=== PATIENT | female | born 1960 | race Caucasian/White ===

== ENCOUNTER 2023-08-26 01:24 | Emergency (ER) | payer BC, SELFPAY ==
[2023-08-26 01:24] VITALS: BMI 31.5
[2023-08-26 01:29] VITALS: BP 156/78
--- NOTE | 2023-08-26 01:52 | ED.MUSCINJ ---
HPI-Injury
<SURYA Wang - Last Filed: 08/26/23 03:27>
General
Chief Complaint: Musculo-Skeletal Complaint
Source: patient and significant other
Exam Limitations: none
Time Seen by Provider: 08/26/23 01:39
Nursing documentation reviewed up to this point in time: agreed with
Travel History
Have you had any contact with someone who has COVID-19?: No
Do you have any symptoms of coronavirus? Fever > 100 degrees, chills, cough, shortness of breath, sore throat, loss of taste or smell, muscle aches, or headache?: No
History of Present Illness-Injury
Is this injury a work related problem?: No
Is pt an associate of [facility]?: No
Initial Injury comments:
This is a 63 year old female with history of knee OA who presents to the ED w/ R posterior knee pain x4 hours. Patient was sitting for a long period of time at a concert [facility] and felt moderate pain after she got up. She was able to walk
to her car, but after an hour long car ride, she was unable to bear weight on the R leg. She used a cane to help ambulate. Her pain has improved. She reports having L knee stiffness and has pain with knee flexion. She had a L TKA 2021 without any
complications. She denies knee swelling, calf pain or redness, SOB, CP, or headache. She denies any known trauma or injury. She denies smoking tobacco. She is not on hormonal replacement therapy. She has no known family history of blood clots.
Past History
<SURYA Wang - Last Filed: 08/26/23 03:27>
Past History
ED Past Medical History: Hypothyroidism
ED Past Surgical History: , Gynecological (hyster) and Other (incisional hernia repair)
Social History
Tobacco: Non-smoker
Personal:
Living: with family
Employment: Employed
Family History
Family History: Other (Noncontributory)
Review of Systems
<SURYA Wang - Last Filed: 08/26/23 03:27>
Review of Systems
Allergies reviewed?: Yes
All Other Systems: Not applicable
Constitutional: Reports no symptoms
EENT: Reports no symptoms
Respiratory: Reports no symptoms
Cardiac: Reports no symptoms
ABD/GI: Reports no symptoms
: Reports no symptoms
Musculoskeletal: Reports muscle stiffness (L posterior knee pain) and other (Difficulty ambulating)
Skin: Reports no symptoms
Neurological: Reports no symptoms
Endocrine: Reports no symptoms
Hematologic/Lymphatic: Reports no symptoms
Psychiatric: Reports no symptoms
Phy Exam
<SURYA Wang - Last Filed: 08/26/23 03:27>
General Physical Exam
General Presentation: well appearing and no apparent distress
General Skin: warm and dry
General Habitus: normal
General Mental: alert
General Hydration: appears well hydrated
ENT Exam
ENT Exam: EOMI, pharynx normal, neck supple and normocephalic
Eye Exam
Eye Exam: PERRL, cornea clear and conjunctiva normal
Cardiovascular Exam
Cardiovascular Exam: regular rate/rhythm, no edema, no murmur and normal peripheral pulses
Pulmonary Exam
Pulmonary Exam: lungs clear, no respiratory distress, no rales, no crackles, no rhonchi, no stridor, no wheezing and no cough
Gastrointestinal Exam
Gastrointestinal Exam: normal bowel sounds, non tender, soft, no organomegaly, no pulsatile mass and non distended
Neurological Exam
Neurological Exam: alert, oriented x3, no motor deficits and speech normal
Musculoskeletal Exam
Musculoskeletal Exam: full ROM, no edema and other (R knee stiffness )
Skin Exam
Skin Exam: normal color, warm/dry, no rash and no petechia
Psychiatric Exam
Psychiatric Exam: normal mood/affect
Injury Course
<SURYA Wang - Last Filed: 08/26/23 03:27>
Orders/Labs/Results
Orders:
Orders
08/26/23 02:08
CR Knee- Right 4 Or More View* Urgent
Comment:
Reason For Exam: posterior knee pain
US Periph Venous LOWER Ext RT Urgent
Comment:
Reason For Exam: Right calf pain
<Jamar Paulino DO - Last Filed: 08/26/23 03:29>
Orders/Labs/Results
Orders:
Orders
08/26/23 02:08
CR Knee- Right 4 Or More View* Urgent
Comment:
Reason For Exam: posterior knee pain
US Periph Venous LOWER Ext RT Urgent
Comment:
Reason For Exam: Right calf pain
<SURYA Wang - Last Filed: 08/26/23 03:27>
MDM/Problems Addressed
Differential Diagnosis Includes:
Knee OA, knee stiffness, DVT, Freeman's cyst
DVT concerned due to RLE pain. However less likely due to negative family history, no risk factors (smoking/HRT). RLE not inflamed or swollen. Will order lower extremity ultrasound to rule out DVT. Freeman's cyst considered due to pain with posterior
knee and stiffness, however normal physical exam. Knee stiffness considered. I suspect this episode of difficulty bearing weight on R leg is due to knee stiffness secondary to knee OA. Her symptoms have improved. She has a history of L TKA in 2021.
Will order knee xray for further evaluation.
<SURYA Wang - Last Filed: 08/26/23 03:27>
*Critical Care Note
Total Time (30-74mins, 75-104mins- exclusive of procedures): Not Applicable
<Jamar Paulino DO - Last Filed: 08/26/23 03:29>
Update Note
Update Note:
Ultrasound negative for DVT. X-ray does show arthritic changes but no acute pathology. Patient feels better and feels comfortable going home
ED Attending Note
<SURYA Wang - Last Filed: 08/26/23 03:27>
-
Portions of this chart may have been created with voice recognition software.� Occasional wrong word or��sound alike� substitutions may have occurred due to the inherent limitations of voice recognition software.
<Jamar Paulino DO - Last Filed: 08/26/23 03:29>
ED Attending Note
Patient seen and examined by attending physician: Yes
I performed the substantive portion of visit, reviewed & personally made and approve the management plan that is documented in note by myself or LIZBETH.: Yes
ED Attending Note:
I have seen and evaluated the patient with a [id number] encounter. I have spoken to the advance practicer provider and involved in the medical history, the physical exam, medical decision making.
Evaluation and management service: agree unless noted differently below.
Results interpretation: agree unless noted differently below.
Focused HPI: 63-year-old female presenting with right knee pain. Patient was recently at a concert and was sitting in a chair for prolonged period time. Symptoms worsened in the car ride. She complains of pain behind her right knee. Patient was
having trouble bearing weight. Patient states that symptoms seem to be resolving
Physical exam: Sitting in bed comfortably. No calf tenderness. Very mild tenderness to right popliteal fossa. Distal extremity neurovascular intact. Knee joint stable
Medical Decision Making: Given complaint, will obtain ultrasound rule out DVT versus Freeman's cyst and will obtain x-ray but discussed likely strain
Discharge Plan
Departure
Patient Disposition: Home (Routine Discharge)
Date of Disposition: 08/26/23
Time of Disposition: 03:28
Patient with high blood pressure during this ER visit?: Yes
Discharge Problem:
Knee pain, right
Instructions: Knee Pain (DC), BLOOD PRESSURE
Prescriptions:
No Action
levothyroxine 50 MCG tablet
50 mcg PO DAILY
cholecalciferol (vitamin D3) 1,000 UNITS tablet
1,000 units PO DAILY
L.acidoph, paracasei,B. lactis 1 EACH capsule
1 ea PO DAILY
Caltrate-D3 Plus Minerals 1 EACH tablet
1 ea PO QPM
Xiidra 1 EACH dropperette
1 drp BOTH EYES BID
acetaminophen 325 MG tablet
650 mg PO Q4HWA 0RF
Referrals:
Tisha Calix MD [Family Provider] -
Activity Restrictions/Additional Instructions:
Please return for any worsening symptoms.
You may return at any time if you have further concerns.
Please follow up with your doctor at the first available appointment, preferably this week.
Thank you for choosing [facility].
Interventions
Interventions:
*Risk Screen - Suicide Last Done: 08/26/23 01:29
*General Assessment Last Done: 08/26/23 01:29
*Neglect/Abuse Screening Last Done: 08/26/23 01:29
ED- Fall Risk Assessment Last Done: 08/26/23 01:29
*ED COVID-19 Vaccine History Last Done: 08/26/23 01:29
ED- Cardiac Assessment Last Done: 08/26/23 03:00
ED-Musculoskeletal Assessment Last Done: 08/26/23 03:00
ED- Pulmonary Assessment Last Done: 08/26/23 03:00
ED-Peripheral Vascular Assessment Last Done: 08/26/23 03:14
ED-Skin Assessment Last Done: 08/26/23 03:00
Discharge Date and Time
Print Language: DANISH
[2023-08-26 04:03] VITALS: BP 127/72
== END 2023-08-26 04:07 | disposition home or self-care (01) ==
LOC: EMR 01:24
PROVIDERS: EMERGENCY PHYSICIAN Student in an Organized Health Care Education/Training Program; FAMILY PHYSICIAN Family Medicine
DX: M25.561 Pain in right knee (principal); R26.2 Difficulty in walking, not elsewhere classified; M79.661 Pain in right lower leg; M25.662 Stiffness of left knee, not elsewhere classified; R03.0 Elevated blood-pressure reading, without diagnosis of hypertension; E03.9 Hypothyroidism, unspecified; M17.11 Unilateral primary osteoarthritis, right knee; G43.909 Migraine, unspecified, not intractable, without status migrainosus; Z96.652 Presence of left artificial knee joint; Z88.1 Allergy status to other antibiotic agents; Z88.0 Allergy status to penicillin; Z88.2 Allergy status to sulfonamides
CPT/HCPCS: 99284; 73564; 93971

== ENCOUNTER → 2023-09-16 07:05 | Outpatient (REF) | payer BC, SELFPAY | LOC: RAD 07:05 | PROVIDERS: ATTENDING PHYSICIAN Family Medicine | DX: H53.9 Unspecified visual disturbance (principal) | CPT/HCPCS: 93880 ==

== ENCOUNTER → 2023-11-17 07:07 | Outpatient (REF) | payer BC, SELFPAY ==
[2023-11-17 09:37] LABS: ALT (SGPT) 19 U/L (0-35); AST (SGOT) 30 U/L (14-36); Albumin 4.1 g/dl (3.5-5.0); Alkaline Phosphatase 73 U/L (38-126); Blood Urea Nitrogen 16 mg/dl (7-17); Calcium 9.7 mg/dl (8.4-10.2); Carbon Dioxide 27 mmol/L (22-30); Chloride 103 mmol/L (98-107); Glucose 88 mg/dl (70-99); HDL Cholesterol 42 mg/dl; LDL Cholesterol, Calculated 100 mg/dl; Potassium 4.1 mmol/L (3.5-5.1); Sodium 141 mmol/L (135-145); Total Bilirubin 0.4 mg/dl (0.2-1.3); Total Cholesterol 176 mg/dl (50-199); Total Protein 6.7 g/dl (6.3-8.2); Triglyceride 174 mg/dl (10-149); Very Low Density Lipoprotein 34 mg/dl (0-30); eGFR > 60.00
[2023-11-17 11:28] LABS: Free T4 1.11 ng/dl (0.78-2.19)
[2023-11-17 11:42] LABS: TSH 3.52 uIU/ml (0.47-4.68)
== END ==
LOC: REG 07:07
PROVIDERS: ATTENDING PHYSICIAN Family Medicine
DX: E03.9 Hypothyroidism, unspecified (principal); E78.2 Mixed hyperlipidemia
CPT/HCPCS: 36415; 80053; 80061; 84439; 84443

== ENCOUNTER 2023-12-02 06:04 | Inpatient (IN) | payer BC, MEDICARE, SELFPAY ==
--- NOTE | 2023-10-26 11:13 | CM ---
Patient is scheduled for an elective R TKR on 12/02/23. Spoke with patient prior to surgery via telephone. Patient had a L TKR at in 2021. reintroduced role of Orthopedic Navigator. Patient reports that she lives with her in a two story
home. There is one steps to enter and a flight of steps to the second floor. There is a powder room on the entry tech. She currently functions independently. She has a rolling walker, cane and grab bars in the shower. She has had VN services
through VN. PCP is Dr. Tisha Calix.
Discussed orthopedic program and post surgical plans. Reviewed anticipated length of stay and that goal is for her to return home at discharge. Also reviewed outpatient PT. Patient is in agreement with tentative plan and will go directly to
outpatient PT at [facility]. She will have support from her when she goes home.
Patient will complete online education.
Plan: Orthopedic Navigator will remain available to assist with the care of patient and will reassess discharge needs after surgery.
[2023-11-08 09:49] VITALS: BMI 30.5
[2023-11-08 10:18] LABS: Hematocrit 41.9 % (37.0-47.0); Hemoglobin 14.2 g/dL (12.0-16.0); Mean Corp Hgb Conc. 33.9 g/dL (33.0-37.0); Mean Corpuscular Hgb 32.6 pg (27.0-31.0); Mean Corpuscular Volume 96.1 fL (81.0-99.0); Mean Platelet Volume 9.5 fL (7.4-10.4); Platelet Count 252 10^3/uL (130-400); Red Blood Cell Count 4.36 10^6/uL (4.20-5.40); White Blood Cell Count 10.1 10^3/uL (4.8-10.8)
[2023-11-08 10:53] LABS: ALT (SGPT) 18 U/L (0-35); AST (SGOT) 30 U/L (14-36); Albumin 4.5 g/dl (3.5-5.0); Alkaline Phosphatase 77 U/L (38-126); Blood Urea Nitrogen 13 mg/dl (7-17); Calcium 9.9 mg/dl (8.4-10.2); Carbon Dioxide 28 mmol/L (22-30); Chloride 102 mmol/L (98-107); Estimated Creatinine Clearance 82 ml/min; Glucose 87 mg/dl (70-99); Potassium 4.6 mmol/L (3.5-5.1); Sodium 138 mmol/L (135-145); Total Bilirubin 0.7 mg/dl (0.2-1.3); Total Protein 7.1 g/dl (6.3-8.2); eGFR > 60.00
[2023-11-09 11:04] LABS: Glycohemoglobin (HgbA1c) 5.5 % (4.0-5.6)
--- NOTE | 2023-11-09 13:42 | PTCARENOTE ---
Abn ECG, Dr. Lauren notified, Medical clearance will suffice.
--- NOTE | 2023-11-09 13:45 | PTCARENOTE ---
PCP office notified of Abn ECG, requested for ECG to be addressed at appointment on 11/20 for surgical clearance.
[2023-11-25 09:49] VITALS: BMI 30.5
[2023-11-25 10:02] VITALS: BMI 30.5
[2023-12-02] VITALS (19 sets, daily range): BP systolic 91–131; BP diastolic 48–83; PULSE 79; O2SAT 94; BMI 30.5
[2023-12-02] MEDS: TYLENOL 650 MG PO ×4 (06:30→21:07)
[2023-12-02] MEDS: NORMOSOL-R 1000 IV ×2 (06:31→10:43)
[2023-12-02] MEDS: MOBIC 15 MG PO (06:31)
--- NOTE | 2023-12-02 07:20 | W.DS.TRANS ---
DC Summary - Cell Inspector
-
Discharge Instructions:
Sleep Apnea Risk Low
Discharge Diagnosis/Procedures R TKA Kaila Benedict 12/02/23
Diet As tolerated
Activity With Walker
Driving Restrictions No driving
Other Services PT
Instructions:
Stand-Alone Forms: Total Hip/Knee Replacement D/C
Changes to Home Medications: Yes
Discharge Medications:
DC Medications w/original date entered in [employer]
levothyroxine 50 mcg tablet 50 mcg PO DAILY Thyroid 09/27/20
calcium carb 300 mg-D3 20 mcg-mag ox 25 mg-copy technician 0.5 [id number] tablet (Caltrate-D3 Plus Minerals) 1 ea PO QPM 07/02/21
cholecalciferol (vitamin D3) 25 mcg (1,000 unit) tablet 1,000 units PO DAILY 07/02/21
lifitegrast 5 % eye drops in a dropperette (Xiidra) 1 drp BOTH EYES BID PRN dry eyes 07/02/21
lactobacillus combination no.4 3 billion cell capsule (Probiotic) 3,000 mmu cells PO DAILY 11/25/23
mupirocin 2 % topical ointment 1 applic topical BID 11/25/23
rosuvastatin 5 mg tablet 5 mg PO HS 11/25/23
acetaminophen 500 mg tablet 1,000 mg (2 x 500 mg) PO QID #0 tabs 12/02/23
aspirin 325 mg tablet 325 mg PO DAILY blood clot prevention #1 tab 12/02/23
dexamethasone 4 mg tablet 4 mg PO BID inflammation #6 tabs 12/02/23
docusate sodium 100 mg capsule (Colace) 100 mg PO BID stool softner #1 cap 12/02/23
magnesium hydroxide 400 mg/5 mL oral suspension (Milk of Magnesia) 30 ml PO HS PRN Constipation #1 mL 12/02/23
meloxicam 15 mg tablet 15 mg PO DAILY anti-inflammatory #14 tabs 12/02/23
ondansetron 4 mg disintegrating tablet 4 mg PO Q6H PRN n/v #20 tabs 12/02/23
oxycodone 5 mg tablet 5 mg PO Q6H PRN 1 tab moderate pain, 2 tabs severe pain #30 tabs 12/02/23
sennosides 8.6 mg tablet (Senokot) 17.2 mg (2 x 8.6 mg) PO BID laxative #2 tabs 12/02/23
Home Medication Changes
dexamethasone 4 mg tablet 4 mg PO BID inflammation #6 tabs 12/02/23
meloxicam 15 mg tablet 15 mg PO DAILY anti-inflammatory #14 tabs 12/02/23
ondansetron 4 mg disintegrating tablet 4 mg PO Q6H PRN n/v #20 tabs 12/02/23
oxycodone 5 mg tablet 5 mg PO Q6H PRN 1 tab moderate pain, 2 tabs severe pain #30 tabs 12/02/23
Pending Results: No
[2023-12-02] MEDS: ROXICODONE 5 MG PO (13:01)
[2023-12-02] MEDS: ANCEF 5 IV ×2 (14:15→21:08)
--- NOTE | 2023-12-02 14:18 | PTCARENOTE ---
1405: Patient arrived to 2S. Full head to toe assessment completed. B/L LE neurovascular assessment completed. Aquacell on R knee clean dry and intact. IVF running per order. Call bishop within reach and bed in lowest position. at bedside.
--- NOTE | 2023-12-02 15:31 | W.PN.UPDATE ---
Update Note
Progress Note Update
Patient doing well postop. Walking the halls. VSS. Pulm: nonlabored. CV: regular. Abd: benign. RLE: NVI distally. calf soft. Able to fully extend. Dressing CDI. Postop xray as expected. ASA for DVT prophylaxis. Plan for discharge home
tomorrow with outpatient PT on Tuesday.
[2023-12-02] MEDS: ASPIRIN 325 MG PO (17:04)
[2023-12-02] MEDS: BACTROBAN 2% OINTMENT 1 APPLIC NASAL (21:06)
[2023-12-02] MEDS: SENOKOT 17.2 MG PO (21:06)
[2023-12-02] MEDS: PEPCID 20 MG PO (21:07)
[2023-12-02] MEDS: CRESTOR 5 MG PO (21:07)
[2023-12-02] MEDS: COLACE 100 MG PO (21:07)
[2023-12-02] MEDS: DECADRON 4 MG PO (21:07)
[2023-12-02] MEDS: TORADOL 15 MG IV (21:08)
[2023-12-02] MEDS: NEURONTIN 300 MG PO (21:08)
[2023-12-03] MEDS: TYLENOL 650 MG PO ×2 (00:21→08:13)
[2023-12-03 03:26] VITALS: BP 111/61
[2023-12-03] MEDS: TYLENOL PO (05:51)
[2023-12-03] MEDS: SYNTHROID 50 MCG PO (06:23)
[2023-12-03 07:15] VITALS: BP 124/67
--- NOTE | 2023-12-03 07:55 | W.PN.ORTHO ---
Today's Communication / Plan
-
Plan for discharge home today with outpatient PT on Tuesday.
Assessment
.
Distal Motor Intact: Yes
Dressing:
Clean, dry and intact.
Assessment:
Doing well s/p R TKR
Plan
.
Surgery / Date: 12/02/2023 R TKR
DVT Prophylaxis: Aspirin
Activity:
Out of bed.
PT/OT
Discharge Plan: Home w/ Outpatient PT
Subjective
.
.:
Patient resting comfortably. Doing well. In the hallway walking yesterday
Vital Signs and Labs
.
Vital Signs and Labs:
Lab Results
11/08/23 09:42
11/08/23 09:42
Temp Pulse Resp BP Pulse Ox
97.8 F 68 16 124/67 97
12/03/23 07:15 12/03/23 07:15 12/03/23 07:15 12/03/23 07:15 12/03/23 07:15
Physical Exam
-
Pulm: nonlabored
CV: regular
RLE: Dressing CDI. NVI distally. Calf soft. ROM 0-90 degrees
[2023-12-03] MEDS: BACTROBAN 2% OINTMENT 1 APPLIC NASAL (08:12)
[2023-12-03] MEDS: ASPIRIN 325 MG PO (08:12)
[2023-12-03] MEDS: MOBIC 15 MG PO (08:13)
[2023-12-03] MEDS: SENOKOT 17.2 MG PO (08:13)
[2023-12-03] MEDS: COLACE 100 MG PO (08:13)
[2023-12-03] MEDS: TORADOL 15 MG IV (08:13)
[2023-12-03] MEDS: DECADRON 4 MG PO (08:13)
[2023-12-03] MEDS: FLUSH (NSS) 2 FLUSH IV (08:14)
[2023-12-03] MEDS: ROXICODONE 5 MG PO (08:24)
[2023-12-03 09:15] VITALS: BP 126/72; PULSE 76
--- NOTE | 2023-12-03 10:30 | CM ---
Reviewed the chart notes and spoke with the patient at the bedside. CM consult received for VN/homecare. Patient will be going to outpatient therapy here at . VN declined. The patient's spouse will provide transportation. CM continues to be
available to patient/family and is monitoring medical plan for needs at discharge.
Plan: Discharge to home with outpatient therapy at .
[2023-12-03 11:18] VITALS: BP 107/57
== END 2023-12-03 12:17 | disposition home or self-care (01) | DRG 470 ==
LOC: 2 SOUTH 06:04
PROVIDERS: ADMITTING PHYSICIAN Orthopaedic Surgery; FAMILY PHYSICIAN Family Medicine
PROC: 0SRC0J9 Replacement of Right Knee Joint with Synthetic Substitute, Cemented, Open Approach (ICD-10-PCS; 2023-12-02)
DX: M17.11 Unilateral primary osteoarthritis, right knee (principal); E03.9 Hypothyroidism, unspecified; E78.00 Pure hypercholesterolemia, unspecified; M85.80 Other specified disorders of bone density and structure, unspecified site; G43.B0 Ophthalmoplegic migraine, not intractable; Z96.652 Presence of left artificial knee joint; Z79.890 Hormone replacement therapy; Z79.82 Long term (current) use of aspirin; Z88.0 Allergy status to penicillin; Z82.49 Family history of ischemic heart disease and other diseases of the circulatory system; Z83.3 Family history of diabetes mellitus
CPT/HCPCS: 36415; 73560; 80053; 83036; 85027; 87070; 93005; 97110; 97116; 97162; 97166; 97535; C1713; C1776

== ENCOUNTER 2023-12-30 12:52 | Outpatient (RCR) | payer BC, MEDICARE, SELFPAY | END 2023-12-30 23:59 | disposition home or self-care (01) | LOC: RPT 12:52 | PROVIDERS: ATTENDING PHYSICIAN Orthopaedic Surgery; FAMILY PHYSICIAN Family Medicine | DX: R26.89 Other abnormalities of gait and mobility (principal); Z96.651 Presence of right artificial knee joint; Z73.6 Limitation of activities due to disability | CPT/HCPCS: 97010; 97110; 97162 ==

== ENCOUNTER 2024-01-11 09:50 | Outpatient (RCR) | payer BC, MEDICARE, SELFPAY | END 2024-01-30 07:38 | disposition home or self-care (01) | LOC: RPT 09:50 | PROVIDERS: ATTENDING PHYSICIAN Orthopaedic Surgery; FAMILY PHYSICIAN Family Medicine | DX: Z47.1 Aftercare following joint replacement surgery (principal); Z73.6 Limitation of activities due to disability; R26.89 Other abnormalities of gait and mobility; M25.561 Pain in right knee; Z96.651 Presence of right artificial knee joint | CPT/HCPCS: 97010; 97110 ==

== ENCOUNTER → 2024-03-05 08:24 | Outpatient (REF) | payer BC, SELFPAY ==
[2024-03-05 10:48] LABS: ALT (SGPT) 22 U/L (0-35); Albumin 4.4 g/dl (3.5-5.0); Alkaline Phosphatase 83 U/L (38-126); Blood Urea Nitrogen 17 mg/dl (7-17); Carbon Dioxide 31 mmol/L (22-30); Chloride 101 mmol/L (98-107); Glucose 90 mg/dl (70-99); HDL Cholesterol 42 mg/dl; LDL Cholesterol, Calculated 82 mg/dl; Potassium 4.7 mmol/L (3.5-5.1); Sodium 142 mmol/L (135-145); Total Bilirubin 0.4 mg/dl (0.2-1.3); Total Cholesterol 158 mg/dl (50-199); Triglyceride 173 mg/dl (10-149); Very Low Density Lipoprotein 34 mg/dl (0-30); eGFR > 60.00
[2024-03-05 10:58] LABS: AST (SGOT) 28 U/L (14-36)
[2024-03-05 11:08] LABS: Free T4 1.03 ng/dl (0.78-2.19)
[2024-03-05 11:22] LABS: TSH 3.81 uIU/ml (0.47-4.68)
== END ==
LOC: REG 08:24
PROVIDERS: ATTENDING PHYSICIAN Family Medicine
DX: E03.9 Hypothyroidism, unspecified (principal); E78.2 Mixed hyperlipidemia
CPT/HCPCS: 36415; 80053; 80061; 84439; 84443

== ENCOUNTER → 2024-05-16 07:16 | Outpatient (REF) | payer BC, SELFPAY | LOC: WDC 07:16 | PROVIDERS: ATTENDING PHYSICIAN Obstetrics & Gynecology; FAMILY PHYSICIAN Family Medicine | DX: Z12.31 Encounter for screening mammogram for malignant neoplasm of breast (principal) | CPT/HCPCS: 77063; 77067 ==

== ENCOUNTER → 2024-08-01 06:46 | Outpatient (REF) | payer BC, SELFPAY ==
[2024-08-01 07:56] LABS: Urine Albumin 1+ (Neg - Trace); Urine Bilirubin Negative (Negative); Urine Character Clear (Clear); Urine Color Yellow; Urine Glucose Negative (Negative); Urine Ketone Negative (Negative); Urine Leukocyte Negative (Negative); Urine Nitrite Negative (Negative); Urine Occult Blood Negative (Negative); Urine Specific Gravity 1.015 (<1.030); Urine Urobilinogen Negative (Neg - 1+)
[2024-08-01 08:10] LABS: ALT (SGPT) 26 U/L (0-35); AST (SGOT) 33 U/L (14-36); Albumin 4.2 g/dl (3.5-5.0); Alkaline Phosphatase 79 U/L (38-126); Blood Urea Nitrogen 14 mg/dl (7-17); Calcium 9.5 mg/dl (8.4-10.2); Carbon Dioxide 30 mmol/L (22-30); Chloride 103 mmol/L (98-107); Glucose 92 mg/dl (70-99); HDL Cholesterol 43 mg/dl; LDL Cholesterol, Calculated 62 mg/dl; Potassium 4.3 mmol/L (3.5-5.1); Sodium 142 mmol/L (135-145); Total Bilirubin 0.6 mg/dl (0.2-1.3); Total Cholesterol 126 mg/dl (50-199); Total Protein 6.8 g/dl (6.3-8.2); Triglyceride 107 mg/dl (10-149); Very Low Density Lipoprotein 21 mg/dl (0-30); eGFR > 60.00
[2024-08-01 08:39] LABS: TSH 5.64 uIU/ml (0.47-4.68)
[2024-08-01 08:43] LABS: Urine Red Blood Cell None Seen /HPF (0-2); Urine Squamous Cell 0-2 /LPF (Few); Urine White Cell 0-2 /HPF (0-5)
== END ==
LOC: REG 06:46
PROVIDERS: ATTENDING PHYSICIAN Family Medicine
DX: E03.9 Hypothyroidism, unspecified (principal); E78.2 Mixed hyperlipidemia; Z13.89 Encounter for screening for other disorder
CPT/HCPCS: 36415; 80053; 80061; 81003; 81015; 84439; 84443

== ENCOUNTER → 2024-11-14 07:08 | Outpatient (REF) | payer BC, SELFPAY ==
[2024-11-14 08:15] LABS: Hematocrit 39.6 % (37.0-47.0); Hemoglobin 13.1 g/dL (12.0-16.0); Mean Corp Hgb Conc. 33.1 g/dL (33.0-37.0); Mean Corpuscular Volume 95.2 fL (81.0-99.0); Nucleated Red Blood Cells % 0 %; Platelet Count 246 10^3/uL (130-400); Red Cell Dist. Width 13.0 % (11.5-14.5)
[2024-11-14 08:30] LABS: Urine Character Clear (Clear)
[2024-11-14 08:56] LABS: ALT (SGPT) 19 U/L (0-35); AST (SGOT) 25 U/L (14-36); Albumin 4.3 g/dl (3.5-5.0); Alkaline Phosphatase 70 U/L (38-126); Blood Urea Nitrogen 16 mg/dl (7-17); Calcium 9.7 mg/dl (8.4-10.2); Carbon Dioxide 25 mmol/L (22-30); Chloride 107 mmol/L (98-107); Glucose 92 mg/dl (70-99); HDL Cholesterol 42 mg/dl; LDL Cholesterol, Calculated 53 mg/dl; Potassium 4.1 mmol/L (3.5-5.1); Sodium 137 mmol/L (135-145); Total Protein 6.8 g/dl (6.3-8.2); Very Low Density Lipoprotein 32 mg/dl (0-30); eGFR > 60.00
[2024-11-14 09:59] LABS: TSH 1.20 uIU/ml (0.47-4.68)
== END ==
LOC: REG 07:08
PROVIDERS: ATTENDING PHYSICIAN Family Medicine
DX: E78.5 Hyperlipidemia, unspecified (principal); R82.90 Unspecified abnormal findings in urine; Z79.899 Other long term (current) drug therapy; E03.9 Hypothyroidism, unspecified
CPT/HCPCS: 36415; 80053; 80061; 81003; 84439; 84443; 85025

== ENCOUNTER → 2024-11-22 10:35 | Outpatient (REF) | payer BC, SELFPAY ==
[2024-11-22 12:19] LABS: Iron 70 ug/dl (37-170)
[2024-11-22 12:28] LABS: Total Iron Binding Capacity 342 ug/dl (265-497)
[2024-11-22 12:51] LABS: Ferritin 45.6 ng/ml (11.1-264.0)
== END ==
LOC: REG 10:35
PROVIDERS: ATTENDING PHYSICIAN Family Medicine
DX: L65.9 Nonscarring hair loss, unspecified (principal)
CPT/HCPCS: 36415; 82728; 83540; 83550; 86038